=== PATIENT | male | born 1975 | race Caucasian/White ===

== ENCOUNTER 2017-10-02 20:09 | Emergency (ER) | payer SELFPAY | END 2017-10-02 21:21 | disposition home or self-care (01) | LOC: ERS 20:09 | DX: J10.1 Influenza due to other identified influenza virus with other respiratory manifestations (principal); F17.210 Nicotine dependence, cigarettes, uncomplicated; Z79.899 Other long term (current) drug therapy; Z71.6 Tobacco abuse counseling | CPT/HCPCS: 87081; 87430; 99406 ==